=== PATIENT | female | born 1990 | race Caucasian/White ===

== ENCOUNTER 2024-11-18 16:36 | Emergency (ER) | payer OTHER ==
[~2024-11-18] VITALS: Ht 157.5 cm; Wt 55.8 kg
[2024-11-18] MEDS: ONDANSETRON HCL 4 MG ORAL DISINTEGRATING TAB PO ONE (17:26)
[2024-11-18] MEDS: HYDROCODONE/APAP 5MG-325MG TAB PO ONE (17:26)
[2024-11-18] MEDS: PREDNISONE 20 MG TAB PO ONE (17:27)
[2024-11-18 18:03] VITALS: PULSE 67; RESP 14; TEMP 97.6; O2SAT 97
[2024-11-18] MEDS ORDERED: PREDNISONE50 MG PO (18:04)
== END 2024-11-18 18:09 | disposition home or self-care (01) ==
LOC: ER 16:52
DX: M65.4 Radial styloid tenosynovitis [de Quervain] (principal); X50.0XXA Overexertion from strenuous movement or load, initial encounter; F41.9 Anxiety disorder, unspecified; F90.9 Attention-deficit hyperactivity disorder, unspecified type
CPT/HCPCS: 73110; 99283; J7512; Q0162